=== PATIENT | female | born 1995 | race American Indian/Alaskan Native ===

== ENCOUNTER 2016-11-19 20:06 | Emergency (ER) | payer SELFPAY ==
[2016-11-19 20:30] VITALS: RESP 18
[2016-11-19 21:15] VITALS: BP 110/70; PULSE 104; TEMP 100.9; O2SAT 100
--- NOTE | 2016-11-19 21:18 | C.PDOC ---
History Of Present Illness Patient is a 21 year old female who presents to the ER with a complaint of body aches, sore throat, nasal congestion, fever and ear pain for the past 2 days. Patient reports taking motrin with minimal relief. Denies nausea or vomiting. Time Seen by Provider: 11/19/16 20:46 Chief Complaint (Nursing): Flu-like Symptoms History Per: Patient History/Exam Limitations: no limitations Onset/Duration Of Symptoms: Days (2) Current Symptoms Are (Timing): Still Present Location Of Pain: Ear(s), Throat, Diffuse Myalgias Sick Contacts (Context): None Associated Symptoms: Fever, Sore Throat Ear Symptoms: Bilateral: Ear Pain Recent travel outside of the [place]: No Past Medical History Reviewed: Historical Data, Nursing Documentation, Vital Signs Vital Signs: Last Vital Signs Temp 100.9 F H 11/19/16 21:14 Pulse 104 H 11/19/16 21:14 Resp 18 11/19/16 21:14 BP 110/70 11/19/16 21:14 Pulse Ox 100 11/20/16 02:33 - Medical History PMH: Anemia, Bronchitis Surgical History: No Surg Hx Family History: States: Unknown Family Hx - Social History Hx Tobacco Use: No Hx Alcohol Use: Yes Hx Substance Use: No - Immunization History Hx Tetanus Toxoid Vaccination: No Hx Influenza Vaccination: No Hx Pneumococcal Vaccination: No Review Of Systems Constitutional: Positive for: Fever ENT: Positive for: Ear Pain, Throat Pain Gastrointestinal: Negative for: Nausea, Vomiting Musculoskeletal: Positive for: Other (Body aches) Physical Exam - Physical Exam Appears: Non-toxic Skin: Normal Color, Warm, Dry Head: Atraumatic, Normacephalic Ear(s): Bilateral: Normal Nose: Other (Enlarged turbinates) Oral Mucosa: Moist Throat: Normal, No Erythema, No Exudate Neck: Normal, Supple Chest: Symmetrical, No Tenderness Cardiovascular: Rhythm Regular (Tachycardic), No Murmur Respiratory: Normal Breath Sounds, No Rales, No Rhonchi, No Wheezing Gastrointestinal/Abdominal: Soft, No Tenderness Neurological/Psych: Oriented x3, Normal Speech, Normal Cognition ED Course And Treatment O2 Sat by Pulse Oximetry: 100 (Room air) Pulse Ox Interpretation: Normal Progress Note: Motrin administered. Pt now with decreased temp, and improved HR. Pt reports some improvement. Follow up and return instructions were given and understood by pt Reassessment Condition: Improved Disposition - Disposition Referrals: Aron Swain MD [Primary Care Provider] - Disposition: HOME/ ROUTINE Disposition Time: 21:15 Condition: STABLE Additional Instructions: Please follow up with PMD Bed rest Drink plenty of fluids Take meds as directed Continue motrin 600mg every 6 hrs Return to ER if worse Prescriptions: Benzonatate [Tessalon Perles] 100 mg PO TID #20 sgl Cetirizine HCl [Zyrtec] 10 mg PO DAILY #20 capsule Ibuprofen [Motrin] 600 mg PO Q6H #30 tab Instructions: Cold Symptoms (ED) - Clinical Impression Clinical Impression: Influenza-like illness - Scribe Statement The provider has reviewed the documentation as recorded by the [employer]ai All medical record entries made by the [employer] were at my direction and personally dictated by me. I have reviewed the chart and agree that the record accurately reflects my personal performance of the history, physical exam, medical decision making, and the department course for this patient. I have also personally directed, reviewed, and agree with the discharge instructions and disposition.
== END 2016-11-19 21:35 | disposition home or self-care (01) ==
LOC: C.ER 20:06 → SUPCPDRO 20:06 → C.ER 21:35
DX: J11.1 Influenza due to unidentified influenza virus with other respiratory manifestations (principal)